=== PATIENT | female | born 1940 | race Caucasian/White ===

== ENCOUNTER 2016-11-17 09:58 | Inpatient (IN) ==
[2016-11-17 11:54] LABS: Basophils % 0.4 %; Eosinophils # 0.3 K/mcL (0.0-0.6); Eosinophils % 4.7 %; Hematocrit 35.9 % (35.3-44.9); Hemoglobin 11.5 g/dL (11.5-15.4); Immature Granulocytes % 0.3 % (0-4); Lymphocytes # 1.5 K/mcL (0.6-4.6); Lymphocytes % 22.3 %; Mean Corpuscular Hemoglobin 27.6 pg (28.0-33.3); Mean Corpuscular Volume 86.3 fL (83.0-100.0); Monocytes # 0.7 K/mcL (0.0-1.3); Monocytes % 9.6 %; Neutrophils # 4.2 K/mcL (1.6-8.9); Platelet Count 263 K/mcL (140-400); Red Blood Count 4.16 M/mcL (3.82-4.97); Red Cell Distribution Width 16.4 % (11.5-14.5); Segmented Neutrophils % 62.7 %
[2016-11-17 12:10] LABS: Albumin 3.9 g/dL (3.5-5.0); Albumin/Globulin Ratio 1.3 (1.1-2.2); Alkaline Phosphatase 106 Units/L (38-126); Aspartate Amino Transferase 13 Units/L (5-34); BUN/Creatinine Ratio 24 (6-26); Bilirubin,Total 0.7 mg/dL (0.2-1.2); Blood Urea Nitrogen 28 mg/dL (7-20); Calcium 9.6 mg/dL (8.6-10.8); Carbon Dioxide 27 mEq/L (19-29); Chloride 104 mEq/L (98-109); Globulin 2.9 g/dL (2.4-3.5); Glucose 109 mg/dL (70-99); Osmolality,Calculated 294 (280-300); Phosphorous 4.4 mg/dL (2.3-4.7); Potassium 4.9 mEq/L (3.5-4.5); Sodium 139 mEq/L (136-145); Total Protein 6.8 g/dL (6.0-8.3); eGFR For African Americans 55 (> 60); eGFR For Non-African Americans 46 (> 60)
[2016-11-17 12:11] LABS: Bilirubin,Urine Negative (Negative); Blood,Urine Negative (Negative); Clarity,Urine Clear (Clear); Color,Urine Yellow (Yellow); Glucose,Urine (UA) Normal (Normal); Ketones,Urine Negative (Negative); Leukocyte Esterase,Urine Moderate (Negative); Nitrite,Urine Negative (Negative); Protein,Urine Negative (Neg-Trace); Specific Gravity,Urine 1.009 (1.010-1.025); Urobilinogen,Urine Normal (Normal)
[2016-11-17 12:11] LABS: Alanine Aminotransferase < 6 Units/L (0-55)
[2016-11-17 12:13] LABS: Bacteria,Urine None Seen per hpf (None-Few); Hyaline Casts,Urine None Seen per lpf (None-Few); RBC,Urine 0-3 per hpf (0-3); Squamous Epithelial Cell,Urine Moderate per lpf (None-Few)
--- NOTE | 2016-11-17 12:18 | Emergency Department Note ---
START Narrative - START START: I examined this patient and my medical decision-making was reviewed with the SAMPLE STEAMER/PA/Advanced Practice Nurse/Resident Physician. I agree with the documented findings, disposition and treatment plan as described except to the extent set forth below. ED attending note: Patient seen with emergency medicine resident Dr Luong. We independently evaluated the patient. We independently had [id number] contact with the patient. Please see a copy of his note for details of the history and physical, evaluation, management and disposition of this emergency Department patient. Briefly: 76-year-old female presents with 2 chief complaints. Upon recurrent syncopal attacks with no aggravating or alleviating factors. Over the past month or so. No premonitory symptoms. No residual neurologic deficits. And generalized weakness over the past several weeks. Neurologic examination is nonfocal afebrile with stable vital signs. Patient had a workup in July at [facility] for generalized weakness which was negative. Patient is undergoing laboratory analysis with urinalysis here. Disposition pending although admission anticipated for recurrent unexplained acute syncopal attacks. Provided 40 minutes of critical care services for this patient.
--- NOTE | 2016-11-17 12:59 | Emergency Department Note ---
Disposition Clinical Impression: Generalized weakness, Hyperkalemia, Acute kidney injury Disposition: Admitted As Inpatient Condition: Fair General Adult HPI - General Chief complaint: ED Altered Mental Status Stated complaint: UTI Time Seen by Provider: 11/17/16 10:57 Source: family Limitations: altered mental status Nursing Notes Reviewed: Yes Vital Signs Reviewed: Yes - History of Present Illness HPI Narrative: Mrs. Hollingsworth, 76-year-old female, presents from home via POV with chief complaint of generalized weakness. Onset late April and has been acutely worse over the last 2-3 weeks. She notes she has had 2-3 episodes in that timeframe. Patient does have prodromal symptoms described as, "my stomach flipping." She is unsure if she has lost consciousness during these events; her states that she is still able to mumble incoherently during these events but the patient has poor recollection was recovered. When she does recover, she comes back to baseline with no apparent confusion. Patient was previously evaluated for the same complaint at [facility] and discharged with a diagnosis of dehydration and UTI. Patient's grandson at bedside who relays that his mother/patient's daughter witnessed one of these episodes and described the patient as pale with no palpable radial pulse. PMH: Parkinson's, recurrent UTI, hypertension. No hx arrhythmias, CAD, ACS, CVA. ROS: Denies fever, chills, nausea, vomiting, chest pains, palpitations, dyspnea, diaphoresis, abdominal pains, changes in bowel or bladder. Pain Scale: 0 - Related Data Home Medications Medication Instructions Recorded Confirmed Acetaminophen [Tylenol Arthritis] 650 mg PO Q8H PRN 11/17/16 11/17/16 Aspirin Enteric Coated [Aspirin EC] 81 mg PO DAILY 11/17/16 11/17/16 Atorvastatin [Lipitor] 40 mg PO HS 11/17/16 11/17/16 Carbidopa/Levodopa 25/100 [Sinemet 2 each PO TID 11/17/16 11/17/16 25/100] Carbidopa/Levodopa ER 50/200 1 each PO HS 11/17/16 11/17/16 [Sinemet ER 50-200 TAB] Celecoxib [Celebrex] 200 mg PO BID 11/17/16 11/17/16 Citalopram Hydrobromide 10 mg PO DAILY 11/17/16 11/17/16 [Citalopram HBr] Coenzyme [id number] E [Co 1 each PO DAILY 11/17/16 11/17/16 Q-10 with l-Carnitine Sftgl] Cranberry 400 mg PO DAILY 11/17/16 11/17/16 Ergocalciferol (VITAMIN D2) 50,000 unit PO CASEY 11/17/16 11/17/16 [Vitamin D2] Omeprazole [PriLOSEC] 20 mg PO DAILY 11/17/16 11/17/16 cephALEXin [Keflex] 500 mg PO DAILY 11/17/16 11/17/16 clonazePAM [Klonopin] 0.5 mg PO BID 11/17/16 11/17/16 Allergies Allergy/AdvReac Type Severity Reaction Status Date / Time diazepam [From Valium] AdvReac See Verified 11/17/16 16:55 Comments All systems ED: reviewed and negative except as stated. Past Medical History - Past Medical History Medical history: Reports: hyperlipidemia, other Psychiatric history: Reports: no psych history - Social History Smoking Status: Never smoker Smokeless Tobacco Status: No Alcohol use: Reports: none Drug use: Reports: none Physical Exam Vital signs reviewed. General: Patient is alert, oriented, and in no acute distress. HEENT: No facial asymmetry. Head is normocephalic and atraumatic. PERRLA, EOMI. Nasal turbinates moist and pink. Posterior pharynx without exudates or cobblestoning. Trachea midline, no palpable thyroid nodules, no thyromegaly. Cardiovascular: Heart regular rate and rhythm without clicks, rubs, gallops, or murmurs. No JVD. PMI nondisplaced. Trace pedal edema bilaterally. Respiratory: Symmetric chest rise with poor respiratory effort. Bilateral breath sounds are clear without wheezing, crackles, or rhonchi. Abdomen: Obese. Bowel sounds present normoactive x-4 quadrants. Abdomen is soft, nondistended, and nontender. No organomegaly noted. Musculoskeletal: Muscle strength 5/5 and symmetric bilaterally in upper and lower extremities. Neuro: Cranial nerves II through XII without deficit. Negative rapid alternating hands. No drift in upper or lower extremities. No aphasia or dysarthria. Sensation light touch intact. Psych: Patient's affect is appropriate for situation. - General Limitations: altered mental status General appearance: alert, in no apparent distress Course Course Narrative: Patient describes syncope with prodrome. Unlikely cardiac however will EKG, chest x-ray, troponin. No focal neurologic deficits; will not CT head at this time. Chest x-ray unremarkable. Troponin 0. Glucose 109. Electrolytes show hyperkalemia. UA suspicious for contamination; unlikely UTI. Discussed with the patient and family at bedside my concern for symptomatic hypotension as well as other potential cardiac etiology. They agreed to admission for continued evaluation. 13:45 Spoke with the admitting hospitalist, Dr. Rodrigez, who agrees to accept the patient. Vital Signs Temperature 97.4 F L 11/17/16 10:02 Pulse Rate 60 11/17/16 10:02 Respiratory Rate 16 11/17/16 10:02 Blood Pressure 126/72 11/17/16 10:02 O2 Sat by Pulse Oximetry 99 11/17/16 10:02 Temperature 98.2 F 11/17/16 21:13 Pulse Rate 72 11/17/16 21:13 Respiratory Rate 16 11/17/16 21:13 Blood Pressure 150/87 11/17/16 21:13 O2 Sat by Pulse Oximetry 95 11/17/16 21:13 Oxygen Delivery Oxygen Delivery Room Air Medical Decision Making - Lab Data Lab results reviewed: Yes I reviewed the patient's lab results. Result diagrams: 11/17/16 11:42 11/17/16 11:42 Lab Results 11/17/16 11/17/16 11/17/16 Range/Units 11:00 11:42 11:42 WBC 6.8 (4.3-11.1) K/mcL RBC 4.16 (3.82-4.97) M/mcL Hgb 11.5 (11.5-15.4) g/dL Hct 35.9 (35.3-44.9) % MCV 86.3 (83.0-100.0) fL MCH 27.6 L (28.0-33.3) pg MCHC 32.0 (31.6-35.5) g/dL RDW 16.4 H (11.5-14.5) % Plt Count 263 (140-400) K/mcL MPV 10.0 (9.4-12.4) fL Immature Gran % 0.3 (0-4) % Seg Neutrophils % 62.7 % Lymphocytes % 22.3 % Monocytes % 9.6 % Eosinophils % 4.7 % Basophils % 0.4 % Neutrophils # 4.2 (1.6-8.9) K/mcL Lymphocytes # 1.5 (0.6-4.6) K/mcL Monocytes # 0.7 (0.0-1.3) K/mcL Eosinophils # 0.3 (0.0-0.6) K/mcL Basophils # 0.0 (0.0-0.2) K/mcL Sodium 139 (136-145) mEq/L Potassium 4.9 H (3.5-4.5) mEq/L Chloride 104 (98-109) mEq/L Carbon Dioxide 27 (19-29) mEq/L BUN 28 H (7-20) mg/dL Creatinine 1.16 H (0.57-1.11) mg/dL Est GFR ( Amer) 55 L (> 60) Est GFR (Non-Af Amer) 46 L (> 60) BUN/Creatinine Ratio 24 (6-26) Glucose 109 H (70-99) mg/dL Calculated Osmolality 294 (280-300) Calcium 9.6 (8.6-10.8) mg/dL Phosphorus 4.4 (2.3-4.7) mg/dL Magnesium 2.0 (1.6-2.6) mg/dL Total Bilirubin 0.7 (0.2-1.2) mg/dL AST 13 (5-34) Units/L ALT < 6 (0-55) Units/L Alkaline Phosphatase 106 (38-126) Units/L Troponin I (0-0.03) ng/mL Serum Total Protein 6.8 (6.0-8.3) g/dL Albumin 3.9 (3.5-5.0) g/dL Globulin 2.9 (2.4-3.5) g/dL Albumin/Globulin Ratio 1.3 (1.1-2.2) Urine Color Yellow (Yellow) Urine Clarity Clear (Clear) Urine pH 6.0 (5.0-8.0) pH Units Ur Specific [place] 1.009 L (1.010-1.025) Urine Protein Negative (Neg-Trace) mg/dL Urine Glucose (UA) Normal (Normal) mg/dL Urine Ketones Negative (Negative) mg/dL Urine Blood Negative (Negative) Urine Nitrite Negative (Negative) Urine Bilirubin Negative (Negative) Urine Urobilinogen Normal (Normal) mg/dL Ur Leukocyte Esterase Moderate H (Negative) Urine Microscopic RBC 0-3 (0-3) per hpf Urine Microscopic WBC 5-15 H (0-3) per hpf Ur Squamous Epith Cells Moderate H (None-Few) per lpf Urine Bacteria None Seen (None-Few) per hpf Hyaline Casts None Seen (None-Few) per lpf Ur Culture Indicated? YES A (NO) 11/17/16 Range/Units 11:42 WBC (4.3-11.1) K/mcL RBC (3.82-4.97) M/mcL Hgb (11.5-15.4) g/dL Hct (35.3-44.9) % MCV (83.0-100.0) fL MCH (28.0-33.3) pg MCHC (31.6-35.5) g/dL RDW (11.5-14.5) % Plt Count (140-400) K/mcL MPV (9.4-12.4) fL Immature Gran % (0-4) % Seg Neutrophils % % Lymphocytes % % Monocytes % % Eosinophils % % Basophils % % Neutrophils # (1.6-8.9) K/mcL Lymphocytes # (0.6-4.6) K/mcL Monocytes # (0.0-1.3) K/mcL Eosinophils # (0.0-0.6) K/mcL Basophils # (0.0-0.2) K/mcL Sodium (136-145) mEq/L Potassium (3.5-4.5) mEq/L Chloride (98-109) mEq/L Carbon Dioxide (19-29) mEq/L BUN (7-20) mg/dL Creatinine (0.57-1.11) mg/dL Est GFR ( Amer) (> 60) Est GFR (Non-Af Amer) (> 60) BUN/Creatinine Ratio (6-26) Glucose (70-99) mg/dL Calculated Osmolality (280-300) Calcium (8.6-10.8) mg/dL Phosphorus (2.3-4.7) mg/dL Magnesium (1.6-2.6) mg/dL Total Bilirubin (0.2-1.2) mg/dL AST (5-34) Units/L ALT (0-55) Units/L Alkaline Phosphatase (38-126) Units/L Troponin I 0.00 (0-0.03) ng/mL Serum Total Protein (6.0-8.3) g/dL Albumin (3.5-5.0) g/dL Globulin (2.4-3.5) g/dL Albumin/Globulin Ratio (1.1-2.2) Urine Color (Yellow) Urine Clarity (Clear) Urine pH (5.0-8.0) pH Units Ur Specific [place] (1.010-1.025) Urine Protein (Neg-Trace) mg/dL Urine Glucose (UA) (Normal) mg/dL Urine Ketones (Negative) mg/dL Urine Blood (Negative) Urine Nitrite (Negative) Urine Bilirubin (Negative) Urine Urobilinogen (Normal) mg/dL Ur Leukocyte Esterase (Negative) Urine Microscopic RBC (0-3) per hpf Urine Microscopic WBC (0-3) per hpf Ur Squamous Epith Cells (None-Few) per lpf Urine Bacteria (None-Few) per hpf Hyaline Casts (None-Few) per lpf Ur Culture Indicated? (NO) - Radiology Data Radiology results reviewed: Yes I reviewed the patient's radiology results. Chest X-Ray 11/17/16 11:23 IMPRESSION: 1. No active pulmonary disease. D/ / Jono Triana MD / Jono Triana MD Interpreting Provider: Jono Triana MD - EKG Data EKG #1 EKG attestation: Yes I reviewed and interpreted this EKG. EKG results narrative: EKG dated 2016 at 11:56 interpreted as sinus bradycardia with first -degree AV block. Rate of 59. [place] 236. QRS 89, QT/QTC 422/20. Left axis. Nonspecific ST-T changes. Compared to previous dated 04/22/2016 showing no acute ischemic changes in comparison.
[2016-11-17] MEDS ORDERED: Naloxone 0.4 MG/ML INJ IVP PRN (14:54)
--- NOTE | 2016-11-17 15:11 | Internal Med History&Physical ---
Date of Encounter: 11/17/16 Time of Encounter: 15:01 Assessment and Plan (1) Syncope Current visit: Yes Status: Acute Increasing frequency of syncopal episodes over the last several months. Patient experiences a brief prodrome of nausea and blurry vision and then loses consciousness. Occurs with position changes most often, but has also occurred while sitting. May be vaso-vagal vs. arrhythmia vs. orthostatic hypotension. EKG showed sinus bradycardia with 1st degree block, HR 59. Troponin negative at 0.00. continuous mica washer gluer echocardiogram orthostatic vital signs. Consider stress test depending on results of echo and discussion with patient and family. Qualifiers: Syncope type: unspecified Qualified Code(s): R55 - Syncope and collapse (2) Parkinsons Current visit: Yes Status: Acute Patient with Parkinsons diagnosed greater than 10 years ago. No recent changes to her medication regimen. Continue home dose of Sinemet. (3) Dehydration Current visit: Yes Status: Acute BUN elevated at 28, creatinine elevated at 1.16. Hydrate with 0.9NS at 80mL/hr and encourage PO intake. Recheck chemistry in the morning. (4) Acute kidney injury Current visit: Yes Status: Acute Likely secondary to dehydration with poor oral intake. UA not definitive for infection, culture sent. Hydrate with 0.9NS and recheck chemistry in the morning. (5) DVT prophylaxis Current visit: Yes Status: Acute anti-embolic stockings Lovenox 40mg SQ daily Internal Medicine - H&P: HPI Chief complaint: syncope Admitted From: Emergency Dept Plans for Post Hospital Care: Home History of present illness: Ms. Hollingsworth is a 76 year old female with hyperlipidemia, sleep apnea, parkinsons disease, who presented to the ED with complaints of increasing episodes of syncope. Patient's and grandson are at the bedside and state patient has had generalized weakness for the last 6 months. She has had episodes of fainting for the last several months, which have increased in frequency over the last 2-3 weeks. The episodes seem to occur usually after getting up from the toilet or getting up from the bed, however they have also occurred while she is sitting with no change position. These episodes used to occur approximately once a week and then increase to a couple times a week and now been occurring a couple times a day. Patient reports that she feels her stomach. Prior to the episodes and she has light sensitivity and blurry vision prior to the episodes as well. She also reports decreased appetite, nausea, constipation. She denies chest pain, palpitations, shortness of breath, headache. Evaluation in the emergency department included an EKG which showed sinus bradycardia with first-degree AV block rate 59, no acute ischemic changes. Test x-ray showed no active pulmonary disease. Troponin was negative at 0.00. White blood cell count was normal at 6.8. She appeared mildly dehydrated with BUN of 28 and creatinine of 1.16. On exam, patient alert and oriented, in no acute distress heart had regular rhythm lungs are clear bilaterally to auscultation, cranial nerves intact, no pronator drift. Past Med Surg Social Fam HX - Past Medical History Medical history: GERD, hyperlipidemia, other (Parkinsons) Psychiatric history: no psych history - Past Surgical History Surgical History: knee replacement - Social History Smoking Status: Never smoker Smokeless Tobacco Status: No Alcohol use: none Drug use: none - Family History Father Living Status: Cause of : ID Hx Family Cardiac Disorders: Yes Mother Living Status: Cause of : CVA Internal Medicine - H&P: Meds Acetaminophen [Tylenol Arthritis] 650 mg PO Q8H PRN 11/17/16 [History] Aspirin Enteric Coated [Aspirin EC] 81 mg PO DAILY 11/17/16 [History] Atorvastatin [Lipitor] 40 mg PO HS 11/17/16 [History] Carbidopa/Levodopa 25/100 [Sinemet 25/100] 2 each PO TID 11/17/16 [History] Carbidopa/Levodopa ER 50/200 [Sinemet ER 50-200 TAB] 1 each PO HS 11/17/16 [ History] Celecoxib [Celebrex] 200 mg PO BID 11/17/16 [History] Citalopram Hydrobromide [Citalopram HBr] 10 mg PO DAILY 11/17/16 [History] Coenzyme [id number] E [Co Q-10 with l-Carnitine Sftgl] 1 each PO DAILY 11/17/16 [History] Cranberry 400 mg PO DAILY 11/17/16 [History] Ergocalciferol (VITAMIN D2) [Vitamin D2] 50,000 unit PO CASEY 11/17/16 [History] Omeprazole [PriLOSEC] 20 mg PO DAILY 11/17/16 [History] cephALEXin [Keflex] 500 mg PO DAILY 11/17/16 [History] clonazePAM [Klonopin] 0.5 mg PO BID 11/17/16 [History] Allergies diazepam [From Valium] Adverse Reaction (Verified 11/17/16 16:55) See Comments All Systems PM: A 10-system review of systems was performed and is negative for pertinent findings except as documented above in the HPI. - Constitutional Constitutional: weakness, no chills, no fever(s), no night sweats - EENT Eyes: blurry vision, no change in vision, no discharge, no pain, no photophobia Ears: no ear discharge, no ear pain, no tinnitus Nose, mouth and throat: no dysphagia, no nasal discharge, no neck pain, no sore throat - Cardiovascular Cardiovascular ROS IM: lightheadedness, syncope, no chest pain, no diaphoresis, no dyspnea, no palpitations - Respiratory Respiratory: no cough, no dyspnea, no wheezing, no excessive phlegm production - Gastrointestinal Gastrointestinal: no abdominal pain, no diarrhea, no hematemesis, no hematochezia, no melena, no nausea, no vomiting - Genitourinary Genitourinary: no change in urinary stream, no dysuria, no flank pain, no hematuria - Musculoskeletal Musculoskeletal ROS IM: muscle weakness (generalized), no numbness, no tingling - Integumentary Integumentary IM: no rash, no unusual bruising - Neurological Neurological ROS: abnormal gait (shuffling), weakness (generalized), no confusion, no convulsions, no focal weakness, no numbness, no tingling, no tremor(s) - Hematologic/Lymphatic Hematologic/Lymphatic: no easy bruising - Constitutional Vitals: Temp Pulse Resp BP Pulse Ox 97.4 F L 60 16 126/72 99 11/17/16 10:02 11/17/16 10:02 11/17/16 10:02 11/17/16 10:02 11/17/16 10:02 General appearance: Present: A&O X 3, pleasant, no acute distress - Head Head exam: Present: atraumatic, normocephalic - Eye Eye exam: Present: PERRL, conjuntiva pink, sclera anicteric Pupils: Present: PERRL - Neck Neck exam general surgery: Present: supple, trachea midline. Absent: lymphadenopathy - Respiratory Respiratory exam: Present: CTAB. Absent: accessory muscle use, rales, rhonchi, wheezes - Cardiovascular Cardiovascular exam: Present: RRR, +S1, +S2. Absent: diastolic murmur, gallop, rubs, systolic murmur - GI/Abdominal GI/Abdominal exam: Present: normal bowel sounds, soft, no peritoneal signs. Absent: distended, tenderness - Extremities Exam Extremities exam: Present: warm, radial pulses palpable and symetrical. Absent : calf tenderness, cyanotic, pedal edema - Neurological Exam Neurological exam: Present: CN II-XII intact, oriented X3, no focal deficits. Absent: pronater drift, facial droop, speech deficit - Skin Skin exam: Present: dry, intact Internal Med - H&P Results - Labs CBC & Chem 7: 11/17/16 11:42 11/17/16 11:42 Labs: All Lab Results (24 Hours) 11/17/16 11/17/16 11/17/16 Range/Units 11:00 11:42 11:42 WBC 6.8 (4.3-11.1) K/mcL RBC 4.16 (3.82-4.97) M/mcL Hgb 11.5 (11.5-15.4) g/dL Hct 35.9 (35.3-44.9) % MCV 86.3 (83.0-100.0) fL MCH 27.6 L (28.0-33.3) pg MCHC 32.0 (31.6-35.5) g/dL RDW 16.4 H (11.5-14.5) % Plt Count 263 (140-400) K/mcL MPV 10.0 (9.4-12.4) fL Immature Gran % 0.3 (0-4) % Seg Neutrophils % 62.7 % Lymphocytes % 22.3 % Monocytes % 9.6 % Eosinophils % 4.7 % Basophils % 0.4 % Neutrophils # 4.2 (1.6-8.9) K/mcL Lymphocytes # 1.5 (0.6-4.6) K/mcL Monocytes # 0.7 (0.0-1.3) K/mcL Eosinophils # 0.3 (0.0-0.6) K/mcL Basophils # 0.0 (0.0-0.2) K/mcL Sodium 139 (136-145) mEq/L Potassium 4.9 H (3.5-4.5) mEq/L Chloride 104 (98-109) mEq/L Carbon Dioxide 27 (19-29) mEq/L BUN 28 H (7-20) mg/dL Creatinine 1.16 H (0.57-1.11) mg/dL Est GFR ( Amer) 55 L (> 60) Est GFR (Non-Af Amer) 46 L (> 60) BUN/Creatinine Ratio 24 (6-26) Glucose 109 H (70-99) mg/dL Calculated Osmolality 294 (280-300) Calcium 9.6 (8.6-10.8) mg/dL Phosphorus 4.4 (2.3-4.7) mg/dL Magnesium 2.0 (1.6-2.6) mg/dL Total Bilirubin 0.7 (0.2-1.2) mg/dL AST 13 (5-34) Units/L ALT < 6 (0-55) Units/L Alkaline Phosphatase 106 (38-126) Units/L Troponin I (0-0.03) ng/mL Serum Total Protein 6.8 (6.0-8.3) g/dL Albumin 3.9 (3.5-5.0) g/dL Globulin 2.9 (2.4-3.5) g/dL Albumin/Globulin Ratio 1.3 (1.1-2.2) Urine Color Yellow (Yellow) Urine Clarity Clear (Clear) Urine pH 6.0 (5.0-8.0) pH Units Ur Specific [place] 1.009 L (1.010-1.025) Urine Protein Negative (Neg-Trace) mg/dL Urine Glucose (UA) Normal (Normal) mg/dL Urine Ketones Negative (Negative) mg/dL Urine Blood Negative (Negative) Urine Nitrite Negative (Negative) Urine Bilirubin Negative (Negative) Urine Urobilinogen Normal (Normal) mg/dL Ur Leukocyte Esterase Moderate H (Negative) Urine Microscopic RBC 0-3 (0-3) per hpf Urine Microscopic WBC 5-15 H (0-3) per hpf Ur Squamous Epith Cells Moderate H (None-Few) per lpf Urine Bacteria None Seen (None-Few) per hpf Hyaline Casts None Seen (None-Few) per lpf Ur Culture Indicated? YES A (NO) 11/17/16 Range/Units 11:42 WBC (4.3-11.1) K/mcL RBC (3.82-4.97) M/mcL Hgb (11.5-15.4) g/dL Hct (35.3-44.9) % MCV (83.0-100.0) fL MCH (28.0-33.3) pg MCHC (31.6-35.5) g/dL RDW (11.5-14.5) % Plt Count (140-400) K/mcL MPV (9.4-12.4) fL Immature Gran % (0-4) % Seg Neutrophils % % Lymphocytes % % Monocytes % % Eosinophils % % Basophils % % Neutrophils # (1.6-8.9) K/mcL Lymphocytes # (0.6-4.6) K/mcL Monocytes # (0.0-1.3) K/mcL Eosinophils # (0.0-0.6) K/mcL Basophils # (0.0-0.2) K/mcL Sodium (136-145) mEq/L Potassium (3.5-4.5) mEq/L Chloride (98-109) mEq/L Carbon Dioxide (19-29) mEq/L BUN (7-20) mg/dL Creatinine (0.57-1.11) mg/dL Est GFR ( Amer) (> 60) Est GFR (Non-Af Amer) (> 60) BUN/Creatinine Ratio (6-26) Glucose (70-99) mg/dL Calculated Osmolality (280-300) Calcium (8.6-10.8) mg/dL Phosphorus (2.3-4.7) mg/dL Magnesium (1.6-2.6) mg/dL Total Bilirubin (0.2-1.2) mg/dL AST (5-34) Units/L ALT (0-55) Units/L Alkaline Phosphatase (38-126) Units/L Troponin I 0.00 (0-0.03) ng/mL Serum Total Protein (6.0-8.3) g/dL Albumin (3.5-5.0) g/dL Globulin (2.4-3.5) g/dL Albumin/Globulin Ratio (1.1-2.2) Urine Color (Yellow) Urine Clarity (Clear) Urine pH (5.0-8.0) pH Units Ur Specific [place] (1.010-1.025) Urine Protein (Neg-Trace) mg/dL Urine Glucose (UA) (Normal) mg/dL Urine Ketones (Negative) mg/dL Urine Blood (Negative) Urine Nitrite (Negative) Urine Bilirubin (Negative) Urine Urobilinogen (Normal) mg/dL Ur Leukocyte Esterase (Negative) Urine Microscopic RBC (0-3) per hpf Urine Microscopic WBC (0-3) per hpf Ur Squamous Epith Cells (None-Few) per lpf Urine Bacteria (None-Few) per hpf Hyaline Casts (None-Few) per lpf Ur Culture Indicated? (NO) - Diagnostic Studies Chest x-ray Additional comments: Chest X-Ray 11/17/16 11:23 IMPRESSION: 1. No active pulmonary disease. D/ / Jono Triana MD / Jono Triana MD Interpreting Provider: Jono Triana MD
[2016-11-17] MEDS: 0.9 % Sodium Chloride 1,000 ML IVC SCH (17:30)
[2016-11-17] MEDS: Carbidopa/Levodopa 25/100 TABLET PO SCH (17:30)
--- NOTE | 2016-11-17 18:01 | Event Note ---
Date of Encounter: 11/17/16 Time of Encounter: 17:00 I examined this patient and my medical decision-making was reviewed with Ms. Varela. I agree with the documented findings, disposition and treatment plan as described except to the extent set forth below. 76 yo CF presented after a syncopal episode. She has Parkinson's. She continues to report lightheadedness on sitting and standing up. Exam is bening with CTAB and regular heart sounds. Labs and EKG personally reviewed. Place under observation. ECHO. Orthostatic vital check. IV fluids. Consider stress test. Resume Parkinson's meds. RADHA Wiley
--- NOTE | 2016-11-17 19:02 | Electrocardiograph Report ---
[address] [address] Test Date: 2016-11-17 Pat Name: Madonna Hollingsworth Department: 105 Room: 3B24 Gender: F Salt Maker: : 1940 Requested By: Kameron Luong Order Number: [id number] Reading MD: Zaid Florez MD Measurements Intervals [place] Rate: 59 P: 43 MA: 236 QRS: -26 QRSD: 89 T: 59 QT: 422 QTc: 420 Interpretive Statements SINUS BRADYCARDIA WITH FIRST DEGREE AV BLOCK MINIMAL VOLTAGE CRITERIA FOR LVH Poor R wave progression Electronically Signed On 11-17-2016 19:00:58 EDT by Zaid Florez MD
[2016-11-17] MEDS: clonazePAM 0.5 MG TABLET PO SCH (21:32)
[2016-11-17] MEDS: Carbidopa/Levodopa ER 50/200 TABLET PO SCH (23:10)
[2016-11-18 05:23] LABS: Basophils # 0.1 K/mcL (0.0-0.2); Basophils % 0.5 %; Eosinophils # 0.4 K/mcL (0.0-0.6); Eosinophils % 4.2 %; Hematocrit 34.4 % (35.3-44.9); Hemoglobin 11.1 g/dL (11.5-15.4); Immature Granulocytes % 0.3 % (0-4); Lymphocytes # 1.7 K/mcL (0.6-4.6); Lymphocytes % 18.8 %; Mean Corpuscular HGB Conc 32.3 g/dL (31.6-35.5); Mean Corpuscular Hemoglobin 27.6 pg (28.0-33.3); Mean Corpuscular Volume 85.6 fL (83.0-100.0); Mean Platelet Volume 10.6 fL (9.4-12.4); Monocytes % 10.5 %; Platelet Count 282 K/mcL (140-400); Red Blood Count 4.02 M/mcL (3.82-4.97); Red Cell Distribution Width 16.6 % (11.5-14.5); Segmented Neutrophils % 65.7 %
[2016-11-18 05:42] LABS: BUN/Creatinine Ratio 28 (6-26); Blood Urea Nitrogen 22 mg/dL (7-20); Calcium 9.2 mg/dL (8.6-10.8); Carbon Dioxide 25 mEq/L (19-29); Chloride 106 mEq/L (98-109); Glucose 93 mg/dL (70-99); Osmolality,Calculated 293 (280-300); Potassium 4.1 mEq/L (3.5-4.5); Sodium 140 mEq/L (136-145); eGFR For African Americans > 60 (> 60); eGFR For Non-African Americans > 60 (> 60)
[2016-11-18] MEDS: *HR* Enoxaparin 40 MG/0.4 ML SYRINGE SQ SCH (06:38)
[2016-11-18] MEDS: Carbidopa/Levodopa 25/100 TABLET PO SCH ×3 (06:38→18:02)
[2016-11-18] MEDS: cephALEXin 500 MG CAPSULE PO SCH (08:58)
[2016-11-18] MEDS: clonazePAM 0.5 MG TABLET PO SCH ×2 (08:58→21:31)
[2016-11-18] MEDS: Aspirin Enteric Coated 81 MG Tablet PO SCH (08:58)
[2016-11-18] MEDS: 0.9 % Sodium Chloride 1,000 ML IVC SCH ×2 (09:47→21:32)
--- NOTE | 2016-11-18 10:10 | ECHO - Doppler Report ---
Echocardiogram Name: Madonna Hollingsworth Date of Study: 11/17/2016 Date: 1940 Ht: 60.0 in Medical Record#: [id number] Age: 76 Wt: 195.0 lb Gender: Female BSA: 1.85 Order #: [id number] Location: [facility] Room #: 3B24 Reading Physician: Rhiannon Hilario DO Showroom Sales Assistant: Leia Montalvo Ordering Physician: Suzanna Varela CNP Primary Physician: Karen Reyes CNP Indications: Syncope Impressions: LVEF 60%. Normal left ventricular size and systolic function. There is evidence of mild diastolic dysfunction of the left ventricle. Normal right ventricular size and function. Mild mitral regurgitation. No pulmonary hypertension. Findings: Study Quality * Technically adequate exam. ECG Findings * Normal sinus rhythm. Left Ventricle * LVEF 60%. * Normal LV chamber size, wall thickness and function. * Mild left ventricular diastolic dysfunction. Aorta * Normally sized aortic root. Left Atrium * Mildly dilated left atrium. Mitral Valve * Normal mitral valve structure. * No mitral stenosis. * Mild mitral regurgitation. Aortic Valve * No aortic regurgitation. * Trileaflet aortic valve. * No aortic stenosis. Tricuspid Valve * Tricuspid valve not well visualized. * No tricuspid regurgitation. * Estimated RA pressure is 3 mmHg. * Estimated RVSP is 17 mmHg. * No pulmonary hypertension. Pulmonic Valve * Pulmonic valve is not well visualized. * No pulmonic stenosis. * No pulmonic regurgitation. Pulmonary Artery * Pulmonary artery not well visualized. Right Ventricle * Normal right ventricular structure and function. Right Atrium * Normal right atrial size. Interatrial Septum * No evidence of PFO by color Doppler. Pericardium * There is no pericardial effusion present. IVC * Normal IVC dimensions and inspiratory collapse. History Hypercholesteremia Family History of CAD Measurements: BP: 126/ 72 2D Normal Values RVIDd: 3.40 cm <2.7 cm IVSd: 1.60 cm 0.6 - 1.0 cm LVIDd: 3.00 cm 3.7 - 5.6 cm LVPWd: 1.40 cm 0.6 - 1.1 cm LVIDs: 2.20 cm 1.5 - 3.6 cm AO: 2.40 cm < 4.0 cm LA: 5.10 cm 2.0 - 4.0cm %FS: 26.70 cm >25 % LA volume: 65 Mitral Valve Peak E:.72 m/sec Peak A:1.18 m/sec E/A Ratio:0.6 Peak E' Lat Rick:6.04 cm/s Peak E' Med Rick:5.46 cm/s E/E' Lat Ratio:11.9 E/E' Med Ratio:13.2 Tricuspid Valve TV Regurg Peak Grad: 14.00mmHg TV Regurg Peak Rick: 1.89m/sec Updated by Rhiannon Hilario on 11/18/2016 10:01:52 AM electronically signed on 11/18/2016 10:03:54 AM with status of Final Wall Motion Greco: 1=Normal, 2=Hypokinesis, 3=Akinesis, 4=Dyskinesis, 5=Aneurysmal, 6=Hyperkinetic, X=Not Visualized (Blank)=Missing
--- NOTE | 2016-11-18 14:32 | Internal Med Progress Note ---
Date of Encounter: 11/18/16 Time of Encounter: 09:25 - Assessment and plan (1) Syncope Current Visit: Yes Status: Acute Assessment and plan: Patient reports that she has been having syncopal episodes 2-3 times a week since or . She says she feels a "flip", and she becomes dizzy and knows that she must sit down. She denies shortness of breath, chest pain, nausea or vomiting, and diaphoresis. She says that she has been seen by Dr. Schrader and has been told that there is nothing that can be done. She has never been seen by ENT. Febrile episodes normally happen when there is abrupt position change, but she also states that this happened while she is sitting with no movement. Etiology is uncertain, could be vasovagal or cardiac in nature. Patient was also dehydrated on arrival, if this is a chronic state could be orthostatic hypotension. EKG showed sinus bradycardia first-degree block. Troponins are negative. Echocardiogram shows LVEF is 60% normal systolic function, mild diastolic dysfunction, mild mitral regurgitation and no pulmonary hypertension. Patient states that she does feel some better but says that she became weak and had difficulty walking to the bathroom this morning and required 3 people to get her back to bed. She does have home health, she lives at home with her . Continue cut to length operator Discussed stress test with patient and , they are agreeable to stress in the morning. Neurology consult has been made Qualifiers: Syncope type: unspecified Qualified Code(s): R55 - Syncope and collapse (2) Dizziness Current Visit: Yes Status: Acute Assessment and plan: Plan as above. (3) UTI (urinary tract infection) Current Visit: Yes Status: Acute Assessment and plan: Urine positive for gram-negative rods. Patient is being treated with cephalexin 500 mg by mouth. Sensitivity pending. Qualifiers: Urinary tract infection type: acute cystitis Hematuria presence: with hematuria Qualified Code(s): N30.01 - Acute cystitis with hematuria (4) Parkinsons Current Visit: Yes Status: Chronic Assessment and plan: Patient is receiving PT at home for her Parkinson's. Continue home dose of Sinemet. Patient and both would like to continue PT at home and not go to a nursing facility. Ambulate only with assistance Fall precautions (5) Dehydration Current Visit: Yes Status: Acute Assessment and plan: If patient is chronically dehydrated, this could be a cause of her syncopal episodes. Labs have returned to normal limits. Continue to monitor. IV fluids 0.9 normal saline at 80 ML's per hour. (6) DVT prophylaxis Current Visit: Yes Status: Acute Assessment and plan: Lovenox. VASU oneal. (7) Acute kidney injury Current Visit: Yes Status: Resolved Assessment and plan: Most likely due to poor by mouth intake. GFR is greater than 60, BUN 22, creatinine 0.79. Urine positive for gram-negative rods. - Time Spent With Patient less than 15 minutes - Subjective Interval history: Patient was seen and assessed this morning at about 9:25 AM. She was sitting up in bed, was conversive and alert. She answered questions appropriately. She reports that since or she has been having dizziness and syncopal episodes, she states that she has no recollection of them. She says they do not happen every day, but happened 2-3 times a week. She says when this happens her low abdomen "flips", she becomes dizzy. She denies any shortness of breath, nausea or vomiting, and no diaphoresis. She is not been seen by ENT, however she was seen by neurology and was told there was nothing that could be done. She is currently getting PT at home for her Parkinson's and she has [facility]. She did tell me that she has been not getting PT due to her dizziness and that she has not had it for several months. She also told me that she lives at home with her mother and takes care of her parents at home. Family member arrives and states that this is not true. After patient is redirected she says that she does live at home with her . Her arrives he states that she is indeed getting physical therapy at home for the last 2 weeks. Urine culture returned gram-negative rods today. Patient is being treated with Keflex 500 mg and will continue until sensitivity returns. Physical therapy [place] [facility] before returning home. We will attempt placement if patient and agree. - Constitutional Vitals: Temp Pulse Resp BP Pulse Ox 98.2 F 72 16 113/77 98 11/18/16 11:59 11/18/16 11:59 11/18/16 11:59 11/18/16 11:59 05/23/17 11:59 General appearance: Present: cooperative, A&O X 3, pleasant, no acute distress. Absent: answers questions appropriately - Head Head exam: Present: normal inspection - Eye Eye exam: Present: normal appearance, conjuntiva pink - ENT ENT exam: Present: mucous membranes moist, normal exam - Neck Neck exam general surgery: Present: normal inspection. Absent: lymphadenopathy , tenderness - Respiratory Respiratory exam: Absent: rales, rhonchi, stridor, wheezes - Cardiovascular Cardiovascular exam: Present: RRR, +S1, +S2. Absent: diastolic murmur, systolic murmur - Extremities Exam Extremities exam: Present: normal capillary refill, warm. Absent: pedal edema, tenderness - Neurological Exam Neurological exam: Present: alert, oriented X3, no focal deficits, strengths equal and symetr throughout. Absent: facial droop, speech deficit Internal Medicine: Result - Labs CBC & Chem 7: 11/18/16 04:03 11/18/16 04:03 Labs: Short CBC 11/18/16 Range/Units 04:03 WBC 9.2 (4.3-11.1) K/mcL Hgb 11.1 L (11.5-15.4) g/dL Hct 34.4 L (35.3-44.9) % Plt Count 282 (140-400) K/mcL Neutrophils # 6.0 (1.6-8.9) K/mcL BMP 11/18/16 04:03 Sodium 140 Potassium 4.1 Chloride 106 Carbon Dioxide 25 BUN 22 H Creatinine 0.79 Glucose 93 Calcium 9.2 - VTE Documentation of Mechanical Device: Graduated compression elastic hosiery Consult Discharge Plan - Plan Referrals: Karen Reyes CNP [Primary Care Provider] -
[2016-11-18] MEDS: Carbidopa/Levodopa ER 50/200 TABLET PO SCH (23:09)
[2016-11-19 05:08] LABS: Basophils # 0.1 K/mcL (0.0-0.2); Basophils % 0.9 %; Eosinophils # 0.4 K/mcL (0.0-0.6); Eosinophils % 6.1 %; Hematocrit 31.9 % (35.3-44.9); Immature Granulocytes % 0.3 % (0-4); Lymphocytes # 2.1 K/mcL (0.6-4.6); Lymphocytes % 30.8 %; Mean Corpuscular HGB Conc 31.3 g/dL (31.6-35.5); Mean Corpuscular Hemoglobin 27.3 pg (28.0-33.3); Mean Corpuscular Volume 87.2 fL (83.0-100.0); Mean Platelet Volume 10.4 fL (9.4-12.4); Monocytes # 0.8 K/mcL (0.0-1.3); Monocytes % 11.6 %; Neutrophils # 3.5 K/mcL (1.6-8.9); Platelet Count 250 K/mcL (140-400); Red Blood Count 3.66 M/mcL (3.82-4.97); Red Cell Distribution Width 16.6 % (11.5-14.5); Segmented Neutrophils % 50.3 %
[2016-11-19 05:24] LABS: BUN/Creatinine Ratio 22 (6-26); Blood Urea Nitrogen 17 mg/dL (7-20); Calcium 8.9 mg/dL (8.6-10.8); Carbon Dioxide 24 mEq/L (19-29); Chloride 109 mEq/L (98-109); Glucose 94 mg/dL (70-99); Osmolality,Calculated 293 (280-300); Potassium 4.1 mEq/L (3.5-4.5); Sodium 141 mEq/L (136-145); eGFR For African Americans > 60 (> 60); eGFR For Non-African Americans > 60 (> 60)
[2016-11-19] MEDS: Carbidopa/Levodopa 25/100 TABLET PO SCH ×3 (05:58→18:37)
[2016-11-19] MEDS: *HR* Enoxaparin 40 MG/0.4 ML SYRINGE SQ SCH (06:00)
[2016-11-19] MEDS: Regadenoson 0.4 MG/5 ML SYRINGE IVP ONE ×3 (06:27→11:42)
[2016-11-19] MEDS: cephALEXin 500 MG CAPSULE PO SCH (11:23)
[2016-11-19] MEDS: clonazePAM 0.5 MG TABLET PO SCH (11:23)
[2016-11-19] MEDS: Aspirin Enteric Coated 81 MG Tablet PO SCH (11:23)
[2016-11-19] MEDS: 0.9 % Sodium Chloride 1,000 ML IVC SCH ×2 (11:42→18:37)
--- NOTE | 2016-11-19 12:52 | Nuclear Medicine Stress Report ---
Regadenoson Nuclear Stress Name: Madonna Hollingsworth Date of Study: 11/19/2016 Date: 1940 Ht: 60.0 in Medical Record#: [id number] Age: 76 Wt: 195.0 lb Gender: Female Order #: [id number] Location: [facility] Room: [facility] Supervising Provider: Guera Cantu CNP Reading Physician: Rhiannon Hilario DO Ordering Physician: Nicolette Jauregui CNP Primary Care Physician: Karen Reyes CNP Stress Technologist: Anish Dillon CRT Biscuit Maker: Jean Contreras Indications: dizziness Impression: Perfusion imaging was negative for ischemia or infarct. No appreciable change in pharmacologic stress ECG from baseline. Gated EF = >70%. History: Hypertension Hypercholesteremia Stress Test Summary: Stress Test Type: Pharmacologic Regadenoson 0.4mg/5ml given IV Baseline Information: Initial Heart Rate: 62 Blood Pressure: 138/82 Stress Information: Stress Time: 4 min 00 sec Test Terminated Due to (primary): As per protocol Maximum Blood Pressure: 120/78 Maximum Heart Rate: 91 Percent Maximum Heart Rate Achieved: 62 Double Product: 98662 METS Reached: 1 Symptoms: No chest symptoms Nuclear Summary: SPECT myocardial perfusion imaging using Tc99m Sestamibi given intravenously was performed at rest and following cardiac stress testing. The resting images were obtained following initial dose of 11.0 mCi. Following stress an additional dose of 33.3 mCi was given at peak exercise or 30 seconds post regadenoson infusion. Medication Given: Time Medication Dose Units Route Findings: Stress Note * Resting ECG demonstrated normal sinus rhythm with RSR' in V1, flattened diffuse ST segments. * No appreciable change in pharmacologic stress ECG from baseline. * No arrhythmias were noted during stress. * Patient had no chest pain during stress. Hemodynamic responses * Normal hemodynamic responses to pharmacologic stress. Study Quality * Study quality is good. Gated EF > 70% * Gated EF > 70%. Left Ventricle * The left ventricle is not dilated. NORMALS * Normal wall motion. * Normal segmental perfusion in stress. * Normal Segmental Perfusion in rest. TID * No evidence of transient ischemic dilatation. Lung Uptake * There is no evidence of increase lung uptake. Updated by Rhiannon Hilario on 11/19/2016 12:47:38 PM electronically signed on 11/19/2016 12:48:09 PM with status of Final
--- NOTE | 2016-11-19 13:54 | Internal Med Progress Note ---
Date of Encounter: 11/19/16 Time of Encounter: 10:50 - Assessment and plan (1) Syncope Current Visit: Yes Status: Acute Assessment and plan: Patient has had 2 episodes of orthostatic hypotension since she has been here, most recently today after she came back from her stress test. Systolic blood pressure dropped to 100 from 122 after going from lying to sitting. She was then hypotensive with a systolic of 92 with standing. Echocardiogram shows LVEF 60%, normal systolic function, mild diastolic dysfunction. Normal RV size and function, mild MR and no pulmonary hypertension. Patient had stress test today that was negative for ischemia or infarct, her gated EF is greater than 70%. Due to these findings and patient's overall weakness, I will keep patient overnight again and give IV hydration. Patient also has urinary tract infection and is being treated with IV antibiotics. Patient had a head CT and August, was negative for any acute infarct. Will repeat Gentle IV hydration Continue IV Cipro PT/OT Telemetry Fall precautions Qualifiers: Syncope type: unspecified Qualified Code(s): R55 - Syncope and collapse (2) Dizziness Current Visit: Yes Status: Acute Assessment and plan: Plan as above. (3) UTI (urinary tract infection) Current Visit: Yes Status: Acute Assessment and plan: Urine culture and sensitivity returned today. Urine is positive for Citrobacter freundii. Patient is being treated with IV Cipro 400 mg IV twice a day. She will be sent home on the same. Rocephin has been stopped. Continue IV antibiotics Continue gentle hydration Qualifiers: Urinary tract infection type: acute cystitis Hematuria presence: with hematuria Qualified Code(s): N30.01 - Acute cystitis with hematuria (4) Parkinsons Current Visit: Yes Status: Chronic Assessment and plan: Continue home medication (5) Dehydration Current Visit: Yes Status: Acute Assessment and plan: Renal function remained stable. We will continue gentle IV hydration. Patient is tolerating by mouth intake as well. (6) DVT prophylaxis Current Visit: Yes Status: Acute Assessment and plan: Lovenox. VASU oneal. (7) Acute kidney injury Current Visit: Yes Status: Resolved - Time Spent With Patient less than 15 minutes - Subjective Interval history: Patient was seen and assessed this morning at about 10:50 AM. I did stop by and see patient's several times and addressed his concerns. He was concerned about payment to a assisted and 's condition. Her hemoglobin has dropped from 11.5-10.0. Patient is getting IV fluids and there is no reported carmella hematuria hematochezia or dark tarry stools. We will continue to monitor this. Patient had 2 positive sets of orthostatic vital signs. Due to her history of syncope and these findings, patient will stay overnight for continued monitoring. Stress test and echocardiogram were both negative. Patient had a CT head in August that showed no acute problem. We will repeat this in the morning. Patient is being treated for Citrobacter in her urine with IV Cipro. She will be sent home with by mouth Cipro. We will continue IV hydration and monitoring the patient. - Constitutional Vitals: Temp Pulse Resp BP Pulse Ox 97.3 F L 72 16 122/75 99 11/19/16 11:01 11/19/16 12:27 11/19/16 11:01 11/19/16 12:27 11/19/16 11:01 General appearance: Present: cooperative, A&O X 3, pleasant, no acute distress, answers questions appropriately - Head Head exam: Present: normal inspection - Eye Eye exam: Present: normal appearance, conjuntiva pink - ENT ENT exam: Present: mucous membranes moist, normal exam, normal external ear exam - Neck Neck exam general surgery: Present: normal inspection. Absent: lymphadenopathy , tenderness - Respiratory Respiratory exam: Present: decreased breath sounds, CTAB. Absent: respiratory distress - Cardiovascular Cardiovascular exam: Present: RRR, +S1, +S2. Absent: diastolic murmur, systolic murmur - Extremities Exam Extremities exam: Present: normal capillary refill, normal inspection, warm, radial pulses palpable and symetrical. Absent: pedal edema, tenderness - Neurological Exam Neurological exam: Present: alert, oriented X3, no focal deficits, strengths equal and symetr throughout. Absent: facial droop, speech deficit Internal Medicine: Result - Labs CBC & Chem 7: 11/19/16 04:09 11/19/16 04:09 - VTE Documentation of Mechanical Device: Graduated compression elastic hosiery Consult Discharge Plan - Plan Referrals: Karen Reyes CNP [Primary Care Provider] - Mari Zuleta CNP [Advanced Practice Nurse] - 11/26/16 1:00 pm
--- NOTE | 2016-11-19 13:54 | Carotid Imaging Report ---
Carotid Duplex Patient Name:Madonna Hollingsworth Order Number:[id number] Procedure Date:11/18/2016 Date:1940ge:76 yrs Gender:Female Lt BP:149 / 80 mmHg Rt.BP:155 / 76 mmHgHeart Rate: Location:[facility] Room #: 24 Microwave Radio Technician:Nina Morley Referring MD:Nelia Zimmerman CNP car record clerk:Karen Reyes CNP Reading MD:Eliseo Bee MD Primary Indications:dizziness, syncope Risk Factors Yes/No Hypercholesterolemia Yes Impressions: Findings: Bilateral carotid system is essentially normal. Recommendations: After imaging the patient returned to their room. Findings Carotid Duplex: Right: The right proximal common carotid artery has a PSV of 42 cm/s and a EDV of 8 cm/s. The right mid common carotid artery has a PSV of 45 cm/s and a EDV of 10 cm/s. The right distal common carotid artery has a PSV of 46 cm/s and a EDV of 10 cm/s. The right bifurcation has a PSV of 36 cm/s and a EDV of 9 cm/s. The right proximal internal carotid artery has a PSV of 42 cm/s and a EDV of 10 cm/s. The right mid internal carotid artery has a PSV of 40 cm/s and a EDV of 13 cm/s. The right distal internal carotid artery has a PSV of 58 cm/s and a EDV of 12 cm/s. The right eca has a PSV of 74 cm/s and a EDV of 12 cm/s. The right vertebral artery has a PSV of 32 cm/s and a EDV of 8 cm/s. Left: The left proximal common carotid artery has a PSV of 61 cm/s and a EDV of 15 cm/s. The left mid common carotid artery has a PSV of 63 cm/s and a EDV of 17 cm/s. The left distal common carotid artery has a PSV of 60 cm/s and a EDV of 16 cm/s. There is nonstenotic plaque in the left bifurcation with a PSV of 52 cm/s and a EDV of 12 cm/s. The left proximal internal carotid artery has a PSV of 60 cm/s and a EDV of 16 cm/s. The left mid internal carotid artery has a PSV of 101 cm/s and a EDV of 28 cm/s. The left distal internal carotid artery has a PSV of 104 cm/s and a EDV of 24 cm/s. The left eca has a PSV of 57 cm/s and a EDV of 11 cm/s. The left vertebral artery has a PSV of 43 cm/s and a EDV of 10 cm/s. Prior Study: No prior study available for comparison. Carotid Results Right PSV EDV Assessment Proximal CCA 42 8 Normal Mid CCA 45 10 Normal Distal CCA 46 10 Normal Bifurcation 36 9 Normal Proximal ICA 42 10 Normal Mid ICA 40 13 Normal Distal ICA 58 12 Normal ECA 74 12 Normal Vertebral Artery 32 8 Normal Left PSV EDV Assessment Proximal CCA 61 15 Normal Mid CCA 63 17 Normal Distal CCA 60 16 Normal Bifurcation 52 12 Non Stenotic Plaque Proximal ICA 60 16 Normal Mid ICA 101 28 Normal Distal ICA 104 24 Normal ECA 57 11 Normal Vertebral Artery 43 10 Normal Ratio's Right ICA/CCA Ratio: 1.29 ICA/CCA Values: 58/45 Left ICA/CCA Ratio: 1.65 ICA/CCA Values: 104/63 Updated by Eliseo Bee MD on 11/19/2016 1:47:58 PM electronically signed on 11/19/2016 1:48:10 PM with status of Final
--- NOTE | 2016-11-19 16:33 | Neurology - Consult Note ---
Date of Encounter: 11/19/16 Time of Encounter: 16:30 Assessment and Plan (1) Parkinsons Current Visit: Yes Status: Chronic This patient is indeed very parkinsonian. 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 Unfortunately however she seems to be approaching end stages. It is likely that the dopamine her brain gets exposed to his that which is provided through her medication therapy. She has profound orthostasis. And she is also developing significant cognitive impairment. With regard to the orthostasis I might suggest mineralocorticoids such as Florinef. Otherwise regarding the Parkinson's disease is unfortunately not much else to offer. I did not think that she would be a good candidate for physical therapy. Maintain her Parkinson's medications as they are, currently. History of Present Illness HPI: Ms. Hollingsworth is a 76 year old female who is being seen for neurologic consultation secondary to dizzy spells and difficulty with balance. She is a known diagnosis of Parkinson's disease and has been under the care of Dr. Chao for about 10 years or so. Apparently the dizzy spells have been escalating over the last several weeks to the point where she was having falls and near syncopal episodes daily. She has actually been found to have orthostasis. When she stands she has significant drops in her blood pressure. She is now essentially unable to walk due to this. She is awake and alert, however she admits that her memory is failing as well. CT scan of the head was completed today which was unrevealing. Past Med Surg Social Fam HX - Past Medical History Medical history: hyperlipidemia, other Psychiatric history: no psych history - Past Surgical History Surgical History: knee replacement - Social History Smoking Status: Never smoker Smokeless Tobacco Status: No Alcohol use: none Drug use: none - Family History Father Living Status: Cause of : [place] Hx Family Cardiac Disorders: Yes Mother Living Status: Cause of : CVA Medications and Allergies Acetaminophen [Tylenol Arthritis] 650 mg PO Q8H PRN 11/17/16 [History] Aspirin Enteric Coated [Aspirin EC] 81 mg PO DAILY 11/17/16 [History] Atorvastatin [Lipitor] 40 mg PO HS 11/17/16 [History] Carbidopa/Levodopa 25/100 [Sinemet 25/100] 2 each PO TID 11/17/16 [History] Carbidopa/Levodopa ER 50/200 [Sinemet ER 50-200 TAB] 1 each PO HS 11/17/16 [ History] Celecoxib [Celebrex] 200 mg PO BID 11/17/16 [History] Citalopram Hydrobromide [Citalopram HBr] 10 mg PO DAILY 11/17/16 [History] Coenzyme [id number]-Retncplez-Ddh E [Co Q-10 with l-Carnitine Sftgl] 1 each PO DAILY 11/17/16 [History] Cranberry 400 mg PO DAILY 11/17/16 [History] Ergocalciferol (VITAMIN D2) [Vitamin D2] 50,000 unit PO CASEY 11/17/16 [History] Omeprazole [PriLOSEC] 20 mg PO DAILY 11/17/16 [History] cephALEXin [Keflex] 500 mg PO DAILY 11/17/16 [History] clonazePAM [Klonopin] 0.5 mg PO BID 11/17/16 [History] Allergies diazepam [From Valium] Adverse Reaction (Verified 11/17/16 16:55) See Comments All Systems: A 10-system review of systems was performed and is negative for pertinent findings except as documented above in the HPI. Review of Systems: Temporal review of systems is consistent with a history of present illness. Otherwise negative. Physical Examination - Vital Signs Vital Signs: Initial Vital Signs Temp Pulse Resp BP Pulse Ox 97.4 F L 60 16 126/72 99 11/17/16 10:02 11/17/16 10:02 11/17/16 10:02 11/17/16 10:02 11/17/16 10:02 - Exam Exam: Neurologic examination is performed and finds the following. For cerebral functions-she is awake however somewhat somnolent. She follows some simple commands but gets confused with others. She could not tell me which hospital she was in and thought she was in [place]. Able to talk however. She does have some apraxia. She is not encephalopathic however. Cranial nerves-pupils are equal and reactive to light and accommodation, extraocular motility is intact, sensory to face intact, mastication is intact. There is no facial asymmetry is identified. Hearing is intact symmetrically. Soft palate elevates bilaterally upon phonation. Tongue protrudes midline. Motor exam finds that she is bradykinetic. She does have masked facies. I do not identify a resting tremor, however she does have cogwheel rigidity. She has normal strength of both upper and lower extremities. There is no atrophy identified. Sensory exam finds light touch and deep touch are globally intact. Deep tendon reflexes are diminished throughout. No long tract signs are present. Results - Laboratory Findings CBC and BMP: 11/19/16 04:09 11/19/16 04:09 Abnormal lab findings: Abnormal lab results RBC 3.66 M/mcL (3.82-4.97) L 11/19/16 04:09 Hgb 10.0 g/dL (11.5-15.4) L 11/19/16 04:09 Hct 31.9 % (35.3-44.9) L 11/19/16 04:09 MCH 27.3 pg (28.0-33.3) L 11/19/16 04:09 MCHC 31.3 g/dL (31.6-35.5) L 11/19/16 04:09 RDW 16.6 % (11.5-14.5) H 11/19/16 04:09 Ur Specific [place] 1.009 (1.010-1.025) L 11/17/16 11:00 Ur Leukocyte Esterase Moderate (Negative) H 11/17/16 11:00 Urine Microscopic WBC 5-15 per hpf (0-3) H 11/17/16 11:00 Ur Squamous Epith Cells Moderate per lpf (None-Few) H 11/17/16 11:00 Ur Culture Indicated? YES (NO) A 11/17/16 11:00 Consult Discharge Plan - Plan Referrals: Karen Reyes CNP [Primary Care Provider] - Mari Zuleta CNP [Advanced Practice Nurse] - 11/26/16 1:00 pm
[2016-11-20] MEDS: Carbidopa/Levodopa ER 50/200 TABLET PO SCH ×2 (00:02→22:39)
[2016-11-20] MEDS: clonazePAM 0.5 MG TABLET PO SCH ×3 (00:02→20:33)
[2016-11-20 04:08] LABS: Basophils % 0.5 %; Eosinophils # 0.4 K/mcL (0.0-0.6); Hematocrit 33.2 % (35.3-44.9); Hemoglobin 10.7 g/dL (11.5-15.4); Immature Granulocytes % 0.2 % (0-4); Lymphocytes # 2.1 K/mcL (0.6-4.6); Lymphocytes % 25.6 %; Mean Corpuscular HGB Conc 32.2 g/dL (31.6-35.5); Mean Corpuscular Hemoglobin 27.9 pg (28.0-33.3); Mean Corpuscular Volume 86.5 fL (83.0-100.0); Mean Platelet Volume 10.7 fL (9.4-12.4); Monocytes # 0.8 K/mcL (0.0-1.3); Monocytes % 9.5 %; Neutrophils # 4.7 K/mcL (1.6-8.9); Platelet Count 276 K/mcL (140-400); Red Blood Count 3.84 M/mcL (3.82-4.97); Red Cell Distribution Width 16.6 % (11.5-14.5); Segmented Neutrophils % 59.2 %
[2016-11-20 04:13] LABS: BUN/Creatinine Ratio 20 (6-26); Blood Urea Nitrogen 16 mg/dL (7-20); Calcium 9.3 mg/dL (8.6-10.8); Carbon Dioxide 21 mEq/L (19-29); Chloride 110 mEq/L (98-109); Glucose 108 mg/dL (70-99); Osmolality,Calculated 296 (280-300); Potassium 4.1 mEq/L (3.5-4.5); Sodium 142 mEq/L (136-145); eGFR For African Americans > 60 (> 60); eGFR For Non-African Americans > 60 (> 60)
[2016-11-20] MEDS: Carbidopa/Levodopa 25/100 TABLET PO SCH ×3 (06:41→17:01)
[2016-11-20] MEDS: *HR* Enoxaparin 40 MG/0.4 ML SYRINGE SQ SCH (06:41)
[2016-11-20] MEDS: Aspirin Enteric Coated 81 MG Tablet PO SCH (07:58)
[2016-11-20] MEDS: cephALEXin 500 MG CAPSULE PO SCH (07:59)
[2016-11-20] MEDS: 0.9 % Sodium Chloride 1,000 ML IVC SCH (11:14)
--- NOTE | 2016-11-20 19:07 | Internal Med Progress Note ---
Date of Encounter: 11/20/16 Time of Encounter: 15:00 - Assessment and plan (1) Syncope Current Visit: Yes Status: Acute Assessment and plan: 11/20/2016: Syncope secondary to dehydration and profound orthostasis secondary to advanced Parkinson's disease. I appreciate neurology recommendations. I will recheck orthostatic vital signs and decide based upon that whether she would benefit from starting Florinef. In the interim I will continue with PT OT. Close monitoring for possible fall. She is at high risk for fall and injury. I have discussed discharge planning with the patient's . He is concerned that if she is being discharged home she is at high risk for fall and injury. PT OT recommended subacute rehabilitation. I will refer to administrator social welfare for placement. 11/19/2016: Patient has had 2 episodes of orthostatic hypotension since she has been here, most recently today after she came back from her stress test. Systolic blood pressure dropped to 100 from 122 after going from lying to sitting. She was then hypotensive with a systolic of 92 with standing. Echocardiogram shows LVEF 60%, normal systolic function, mild diastolic dysfunction. Normal RV size and function, mild MR and no pulmonary hypertension. Patient had stress test today that was negative for ischemia or infarct, her gated EF is greater than 70%. Due to these findings and patient's overall weakness, I will keep patient overnight again and give IV hydration. Patient also has urinary tract infection and is being treated with IV antibiotics. Patient had a head CT and August, was negative for any acute infarct. Will repeat Gentle IV hydration Continue IV Cipro PT/OT Telemetry Fall precautions Qualifiers: Syncope type: unspecified Qualified Code(s): R55 - Syncope and collapse (2) Parkinsons Current Visit: Yes Status: Chronic Assessment and plan: Continue home medication (3) Dehydration Current Visit: Yes Status: Acute Assessment and plan: Renal function remained stable. We will continue gentle IV hydration. Patient is tolerating by mouth intake as well. (4) DVT prophylaxis Current Visit: Yes Status: Acute Assessment and plan: Lovenox. VASU hose. (5) Acute kidney injury Current Visit: Yes Status: Resolved Assessment and plan: Most likely due to poor by mouth intake. GFR is greater than 60, BUN 22, creatinine 0.79. Urine positive for gram-negative rods. (6) Generalized weakness Current Visit: Yes Status: Acute (7) UTI (urinary tract infection) Current Visit: Yes Status: Acute Assessment and plan: 11/20/2016: Urine culture grew Citrobacter sensitive to fluoroquinolones. I will continue him with Cipro. Stop Keflex. 11/19/2016: Urine culture and sensitivity returned today. Urine is positive for Citrobacter freundii. Patient is being treated with IV Cipro 400 mg IV twice a day. She will be sent home on the same. Rocephin has been stopped. Continue IV antibiotics Continue gentle hydration Qualifiers: Urinary tract infection type: acute cystitis Hematuria presence: with hematuria Qualified Code(s): N30.01 - Acute cystitis with hematuria - Subjective Interval history: Patient presented with multiple recurrent falls and syncopal episodes secondary to orthostatic hypotension. Over the last 24 hours she reports some improvement in her balance and she has not had any more syncopal or presyncopal episode. She was able to work with physical therapy. She had received continued treatment with IV fluids. She denies chest pain fever dysuria and hematuria. - Constitutional Vitals: Temp Pulse Resp BP Pulse Ox 97.7 F 65 15 177/95 97 11/20/16 15:14 11/20/16 16:44 11/20/16 15:14 11/20/16 16:44 11/20/16 15:14 General appearance: Present: cooperative, A&O X 3, pleasant, no acute distress, answers questions appropriately - Respiratory Respiratory exam: Present: CTAB. Absent: accessory muscle use, rales, rhonchi, wheezes - Cardiovascular Cardiovascular exam: Present: RRR, +S1, +S2. Absent: diastolic murmur, gallop, rubs, systolic murmur - GI/Abdominal GI/Abdominal exam: Present: normal bowel sounds, soft, no peritoneal signs. Absent: distended, tenderness - Extremities Exam Extremities exam: Present: warm, radial pulses palpable and symetrical. Absent : calf tenderness, cyanotic, pedal edema Internal Medicine: Result - Labs CBC & Chem 7: 11/20/16 03:07 11/20/16 03:07 Labs: Short CBC 11/20/16 Range/Units 03:07 WBC 8.0 (4.3-11.1) K/mcL Hgb 10.7 L (11.5-15.4) g/dL Hct 33.2 L (35.3-44.9) % Plt Count 276 (140-400) K/mcL Neutrophils # 4.7 (1.6-8.9) K/mcL BMP 11/20/16 03:07 Sodium 142 Potassium 4.1 Chloride 110 H Carbon Dioxide 21 BUN 16 Creatinine 0.79 Glucose 108 H Calcium 9.3 - VTE Documentation of Mechanical Device: Graduated compression elastic hosiery Consult Discharge Plan - Plan Referrals: Karen Reyes CNP [Primary Care Provider] - Mari Zuleta CNP [Advanced Practice Nurse] - 11/26/16 1:00 pm
[2016-11-21 05:53] LABS: Basophils % 0.5 %; Eosinophils # 0.5 K/mcL (0.0-0.6); Eosinophils % 6.4 %; Hematocrit 31.2 % (35.3-44.9); Hemoglobin 9.9 g/dL (11.5-15.4); Immature Granulocytes % 0.3 % (0-4); Lymphocytes # 2.2 K/mcL (0.6-4.6); Lymphocytes % 28.8 %; Mean Corpuscular HGB Conc 31.7 g/dL (31.6-35.5); Mean Corpuscular Hemoglobin 27.6 pg (28.0-33.3); Mean Corpuscular Volume 86.9 fL (83.0-100.0); Mean Platelet Volume 10.8 fL (9.4-12.4); Monocytes # 0.9 K/mcL (0.0-1.3); Monocytes % 11.5 %; Platelet Count 247 K/mcL (140-400); Red Blood Count 3.59 M/mcL (3.82-4.97); Red Cell Distribution Width 16.6 % (11.5-14.5); Segmented Neutrophils % 52.5 %
[2016-11-21] MEDS: *HR* Enoxaparin 40 MG/0.4 ML SYRINGE SQ SCH (05:57)
[2016-11-21 06:07] LABS: BUN/Creatinine Ratio 19 (6-26); Blood Urea Nitrogen 15 mg/dL (7-20); Calcium 9.1 mg/dL (8.6-10.8); Carbon Dioxide 22 mEq/L (19-29); Chloride 109 mEq/L (98-109); Glucose 96 mg/dL (70-99); Osmolality,Calculated 293 (280-300); Potassium 3.7 mEq/L (3.5-4.5); Sodium 141 mEq/L (136-145); eGFR For African Americans > 60 (> 60); eGFR For Non-African Americans > 60 (> 60)
[2016-11-21] MEDS: Carbidopa/Levodopa 25/100 TABLET PO SCH ×3 (06:48→17:41)
[2016-11-21] MEDS: clonazePAM 0.5 MG TABLET PO SCH ×2 (10:12→20:48)
[2016-11-21] MEDS: Aspirin Enteric Coated 81 MG Tablet PO SCH (10:12)
[2016-11-21] MEDS: cephALEXin 500 MG CAPSULE PO SCH (10:12)
--- NOTE | 2016-11-21 11:02 | Internal Med Progress Note ---
Date of Encounter: 11/21/16 Time of Encounter: 10:00 - Assessment and plan (1) Syncope Current Visit: Yes Status: Acute Assessment and plan: 11/15/1616: Syncope secondary to profound orthostasis and dehydration. The dehydration part has been resolved and the patient is less symptomatic however I am concerned that she will always be orthostatic due to her advanced Parkinson 's disease. I am hesitant to start her on Florinef since she is already hypertensive and this could make her more hypertensive and could potentially cause a stroke. At this point we will monitor closely. We will continue with physical therapy and occupational therapy and instructed her of ways to monitor and adjust for symptoms of orthostatic hypotension. She remains very high risk for falls and injury and would benefit from subacute rehabilitation for PT and OT. 11/20/2016: Syncope secondary to dehydration and profound orthostasis secondary to advanced Parkinson's disease. I appreciate neurology recommendations. I will recheck orthostatic vital signs and decide based upon that whether she would benefit from starting Florinef. In the interim I will continue with PT OT. Close monitoring for possible fall. She is at high risk for fall and injury. I have discussed discharge planning with the patient's . He is concerned that if she is being discharged home she is at high risk for fall and injury. PT OT recommended subacute rehabilitation. I will refer to social services manager for placement. 11/19/2016: Patient has had 2 episodes of orthostatic hypotension since she has been here, most recently today after she came back from her stress test. Systolic blood pressure dropped to 100 from 122 after going from lying to sitting. She was then hypotensive with a systolic of 92 with standing. Echocardiogram shows LVEF 60%, normal systolic function, mild diastolic dysfunction. Normal RV size and function, mild MR and no pulmonary hypertension. Patient had stress test today that was negative for ischemia or infarct, her gated EF is greater than 70%. Due to these findings and patient's overall weakness, I will keep patient overnight again and give IV hydration. Patient also has urinary tract infection and is being treated with IV antibiotics. Patient had a head CT and August, was negative for any acute infarct. Will repeat Gentle IV hydration Continue IV Cipro PT/OT Telemetry Fall precautions Qualifiers: Syncope type: unspecified Qualified Code(s): R55 - Syncope and collapse (2) Parkinsons Current Visit: Yes Status: Chronic Assessment and plan: 11/21/2016: Continue with Sinemet (3) Dehydration Current Visit: Yes Status: Acute Assessment and plan: Renal function remained stable. We will stop IV fluids. Encourage oral hydration. (4) DVT prophylaxis Current Visit: Yes Status: Acute Assessment and plan: Lovenox. VASU oneal. (5) Acute kidney injury Current Visit: Yes Status: Resolved Assessment and plan: Most likely due to poor by mouth intake. GFR is greater than 60, BUN 22, creatinine 0.79. Urine positive for gram-negative rods. (6) Generalized weakness Current Visit: Yes Status: Acute (7) UTI (urinary tract infection) Current Visit: Yes Status: Acute Assessment and plan: 11/21/2016: Switch to oral Cipro. 11/20/2016: Urine culture grew Citrobacter sensitive to fluoroquinolones. I will continue him with Cipro. Stop Keflex. 11/19/2016: Urine culture and sensitivity returned today. Urine is positive for Citrobacter freundii. Patient is being treated with IV Cipro 400 mg IV twice a day. She will be sent home on the same. Rocephin has been stopped. Continue IV antibiotics Continue gentle hydration Qualifiers: Urinary tract infection type: acute cystitis Hematuria presence: with hematuria Qualified Code(s): N30.01 - Acute cystitis with hematuria - Subjective Interval history: 11/21/2016: Patient reports ambulating with a walker yesterday, her dizziness upon standing has resolved however she really remained profoundly orthostatic yesterday by a blood pressure check. She denies syncope chest pain nausea vomiting. She denies dysuria and hematuria. 11/20/2016: Patient presented with multiple recurrent falls and syncopal episodes secondary to orthostatic hypotension. Over the last 24 hours she reports some improvement in her balance and she has not had any more syncopal or presyncopal episode. She was able to work with physical therapy. She had received continued treatment with IV fluids. She denies chest pain fever dysuria and hematuria. - Constitutional Vitals: Temp Pulse Resp BP Pulse Ox 97.7 F 71 14 160/79 94 11/21/16 07:01 11/21/16 07:01 11/21/16 07:01 11/21/16 07:01 11/21/16 07:01 General appearance: Present: cooperative, A&O X 3, pleasant, no acute distress, answers questions appropriately - Eye Eye exam: Present: PERRL, conjuntiva pink, sclera anicteric Pupils: Present: PERRL - Respiratory Respiratory exam: Present: CTAB. Absent: accessory muscle use, rales, rhonchi, wheezes - Cardiovascular Cardiovascular exam: Present: RRR, +S1, +S2. Absent: diastolic murmur, gallop, rubs, systolic murmur - GI/Abdominal GI/Abdominal exam: Present: normal bowel sounds, soft, no peritoneal signs. Absent: distended, tenderness - Skin Skin exam: Present: dry, intact Internal Medicine: Result - Labs CBC & Chem 7: 11/21/16 04:55 11/21/16 04:55 Labs: Short CBC 11/21/16 Range/Units 04:55 WBC 7.6 (4.3-11.1) K/mcL Hgb 9.9 L (11.5-15.4) g/dL Hct 31.2 L (35.3-44.9) % Plt Count 247 (140-400) K/mcL Neutrophils # 4.0 (1.6-8.9) K/mcL BMP 11/21/16 04:55 Sodium 141 Potassium 3.7 Chloride 109 Carbon Dioxide 22 BUN 15 Creatinine 0.77 Glucose 96 Calcium 9.1 - VTE Documentation of Mechanical Device: Graduated compression elastic hosiery Consult Discharge Plan - Plan Referrals: Karen Reyes CNP [Primary Care Provider] - Mari Zuleta CNP [Advanced Practice Nurse] - 11/26/16 1:00 pm
[2016-11-21] MEDS: Acetaminophen 325 MG TABLET PO PRN (14:33)
[2016-11-21] MEDS: Carbidopa/Levodopa ER 50/200 TABLET PO SCH (22:37)
[2016-11-22 04:03] LABS: Basophils # 0.1 K/mcL (0.0-0.2); Basophils % 0.7 %; Eosinophils # 0.5 K/mcL (0.0-0.6); Eosinophils % 6.2 %; Hematocrit 31.6 % (35.3-44.9); Hemoglobin 10.1 g/dL (11.5-15.4); Immature Granulocytes % 0.3 % (0-4); Lymphocytes # 2.1 K/mcL (0.6-4.6); Lymphocytes % 27.9 %; Mean Corpuscular Hemoglobin 27.7 pg (28.0-33.3); Mean Corpuscular Volume 86.6 fL (83.0-100.0); Mean Platelet Volume 10.8 fL (9.4-12.4); Monocytes # 0.8 K/mcL (0.0-1.3); Neutrophils # 4.1 K/mcL (1.6-8.9); Platelet Count 261 K/mcL (140-400); Red Blood Count 3.65 M/mcL (3.82-4.97); Red Cell Distribution Width 16.4 % (11.5-14.5); Segmented Neutrophils % 53.9 %
[2016-11-22 04:24] LABS: BUN/Creatinine Ratio 16 (6-26); Blood Urea Nitrogen 13 mg/dL (7-20); Calcium 9.4 mg/dL (8.6-10.8); Carbon Dioxide 27 mEq/L (19-29); Chloride 109 mEq/L (98-109); Glucose 96 mg/dL (70-99); Osmolality,Calculated 294 (280-300); Potassium 3.5 mEq/L (3.5-4.5); Sodium 142 mEq/L (136-145); eGFR For African Americans > 60 (> 60); eGFR For Non-African Americans > 60 (> 60)
[2016-11-22] MEDS: *HR* Enoxaparin 40 MG/0.4 ML SYRINGE SQ SCH (05:33)
[2016-11-22] MEDS: Carbidopa/Levodopa 25/100 TABLET PO SCH ×2 (05:33→12:08)
[2016-11-22 07:49] VITALS: BP 130/80
[2016-11-22] MEDS: clonazePAM 0.5 MG TABLET PO SCH (09:17)
[2016-11-22] MEDS: cephALEXin 500 MG CAPSULE PO SCH (09:17)
[2016-11-22] MEDS: Aspirin Enteric Coated 81 MG Tablet PO SCH (09:18)
--- NOTE | 2016-11-22 11:26 | Discharge Summary ---
Date of Encounter: 11/22/16 Time of Encounter: 10:00 - Discharge Diagnosis (1) Syncope Priority: Primary Status: Acute Comments: Syncope secondary to dehydration and profound orthostasis, secondary to advanced Parkinson's disease. Patient will most likely always be orthostatic due to advanced Parkinson's. Patient has been seen by physical therapy and occupational therapy and they have instructed her on ways to monitor and adjust for symptoms to avoid falls and injury. She remains very high risk for falls, therefore she is going to subacute rehabilitation for PT and OT. Echocardiogram shows LVEF 60%, normal systolic function, mild diastolic dysfunction. There is normal RV size and function, mild MR and no pulmonary hypertension. Patient had stress test done during admission that was negative for ischemia or infarct. Gated EF is greater than 70%. Head CT done on November 19 was negative for any acute infarct. Carotids were also completed, bilateral carotid system was essentially normal. Patient is being discharged to [facility] for physical therapy and occupational therapy. Qualifiers: Syncope type: unspecified Qualified Code(s): R55 - Syncope and collapse (2) Dizziness Priority: Secondary Status: Acute Comments: Plan as above (3) UTI (urinary tract infection) Priority: Secondary Status: Acute Comments: UTI. Citrobacter. patient is being treated with Cipro by mouth. Will be discharged with same. Qualifiers: Urinary tract infection type: acute cystitis Hematuria presence: with hematuria Qualified Code(s): N30.01 - Acute cystitis with hematuria (4) Parkinsons Priority: Secondary Status: Chronic Comments: Continue Sinemet (5) Dehydration Priority: Secondary Status: Resolved Comments: Renal function has remained stable throughout visit. Patient is tolerating by mouth fluids well. (6) DVT prophylaxis Priority: Secondary Status: Acute Comments: Lovenox. VASU oneal. (7) Acute kidney injury Priority: Secondary Status: Resolved Comments: Patient is being treated for urinary tract infection. Renal function labs have been within normal limits. - Discharge Medications Prescriptions: Ciprofloxacin [Cipro] 500 mg PO BID #8 tablet clonazePAM [Klonopin] 0.5 mg PO BID #4 tablet Home Medications: Acetaminophen [Tylenol Arthritis] 650 mg PO Q8H PRN 11/17/16 [History] Aspirin Enteric Coated [Aspirin EC] 81 mg PO DAILY 11/17/16 [History] Atorvastatin [Lipitor] 40 mg PO HS 11/17/16 [History] Carbidopa/Levodopa 25/100 [Sinemet 25/100] 2 each PO TID 11/17/16 [History] Carbidopa/Levodopa ER 50/200 [Sinemet ER 50-200 Tab] 1 each PO HS 11/17/16 [ History] Celecoxib [Celebrex] 200 mg PO BID 11/17/16 [History] Citalopram Hydrobromide [Citalopram HBr] 10 mg PO DAILY 11/17/16 [History] Coenzyme O50-e-[id number]-Cit E [Co Q-10 with l-Carnitine Sftgl] 1 each PO DAILY 11/17/16 [History] Cranberry 400 mg PO DAILY 11/17/16 [History] Ergocalciferol (VITAMIN D2) [Vitamin D2] 50,000 unit PO CASEY 11/17/16 [History] Omeprazole [PriLOSEC] 20 mg PO DAILY 11/17/16 [History] Ciprofloxacin [Cipro] 500 mg PO BID #8 tablet 11/22/16 [Rx] clonazePAM [Klonopin] 0.5 mg PO BID #4 tablet 11/22/16 [Rx] Allergies/Adverse Reactions: Allergies diazepam [From Valium] Adverse Reaction (Verified 11/17/16 16:55) See Comments Procedures/tests Complete & Pending: Procedures Performed prior 72 hours Category Date Time Status CT head/brain wo con [CT] Routine Cat Scan 11/19/16 15:00 Completed Date of admission: 11/19/16 12:00 Primary care physician: Karen Reyes CNP Discharging clinician: Nelia Zimmerman Anticipated date of discharge: 11/22/16 - Patient Status Disposition: Home, Self-Care Condition: Good Functional capacity at discharge: uses cane/walker Overall status at discharge: patient is progressing back to baseline - Discharge Instructions Follow Up With: Karen Reyes CNP [Primary Care Provider] - Mari Zuleta CNP [Advanced Practice Nurse] - 11/26/16 1:00 pm - Diet and Activity Activity: as per physical therapy Diet: diabetic diet, low fat, low cholesterol, low salt diet Hospital course: Ms. Hollingsworth is a 76 year old female who is admitted to the emergency department on November 17 with complaint of increasing frequency of syncopal episodes over the last few months. She says she experiences nausea and some blurry vision and then loses consciousness. It occurs primarily with position changes, but it also occurred while she was just sitting. Initial EKG showed sinus bradycardia first-degree block, rate 59. Her troponins were negative. Patient has a history of Parkinson's and will continue her Sinemet. Most likely he is due to chronic Parkinson's hypotension syncope. During visit patient had a head CT that was negative for acute infarct. Carotid Dopplers were essentially normal. Echocardiogram showed LVEF of 60%, normal systolic function and mild diastolic dysfunction. Patient also had a stress test during this admission was negative for ischemia or infarct and gated EF was 70%, Patient was dehydrated on admission BUN was elevated at 28. Creatinine was 1.16 she received IV fluids and labs have returned to within normal limits, acute kidney injury resolved. On November 19, patient was found to have a urinary tract infection. Urine was found to have Citrobacter sensitive fluoroquinolones. She has been on Keflex at home and that was stopped. We will continue Cipro by mouth twice a day at the [facility]. Patient's physical exam was benign and negative for any acute findings. Her labs have remained within normal limits and her vital signs have been stable. Patient is accepted to [facility] and will be discharged there for rehabilitation, physical therapy and occupational therapy. - Time Spent with Patient Total time spent providing and/or coordinating discharge services: - Constitutional Vitals: Temp Pulse Resp BP Pulse Ox 98.0 F 66 16 130/80 96 11/22/16 07:48 11/22/16 07:48 11/22/16 07:48 11/22/16 07:48 11/22/16 07:48 General appearance: Present: cooperative, A&O X 3, pleasant, no acute distress, answers questions appropriately - Head Head exam: Present: normal inspection - Eye Eye exam: Present: EOMI, normal appearance, conjuntiva pink. Absent: nystagmus - ENT ENT exam: Present: mucous membranes moist, normal exam, normal external ear exam - Neck Neck exam general surgery: Present: normal inspection. Absent: lymphadenopathy , tenderness - Respiratory Respiratory exam: Present: CTAB. Absent: rales, respiratory distress, rhonchi, stridor, wheezes - Cardiovascular Cardiovascular exam: Present: RRR, +S1, +S2, +S3. Absent: clicks, diastolic murmur, distant heart sounds, systolic murmur - GI/Abdominal GI/Abdominal exam: Present: normal bowel sounds, tenderness. Absent: distended , hepatomegaly - Neurological Exam Neurological exam: Present: alert, oriented X3, no focal deficits, strengths equal and symetr throughout. Absent: facial droop, speech deficit - VTE Documentation of Mechanical Device: Graduated compression elastic hosiery
--- NOTE | 2016-11-22 11:47 | Physician Discharge Referral ---
ExtendedCare Referral Info Transfer To: [facility] Provider in Charge after Transfer: PCP Institutional Level of Care: Intermediate - MR - Diagnosis (1) Syncope Priority: Primary Status: Acute (2) Dizziness Priority: Secondary Status: Acute (3) UTI (urinary tract infection) Priority: Secondary Status: Acute (4) Parkinsons Priority: Secondary Status: Chronic (5) Dehydration Priority: Secondary Status: Resolved (6) DVT prophylaxis Priority: Secondary Status: Acute (7) Acute kidney injury Priority: Secondary Status: Resolved Expected Duration of Placement: 30 days Prognosis: Fair Aware of Diagnosis: Patient, Family Aware of Prognosis: Patient, Family - Transfer Medications Prescriptions: Ciprofloxacin [Cipro] 500 mg PO BID #8 tablet clonazePAM [Klonopin] 0.5 mg PO BID #4 tablet Home Medications: Acetaminophen [Tylenol Arthritis] 650 mg PO Q8H PRN 11/17/16 [History] Aspirin Enteric Coated [Aspirin EC] 81 mg PO DAILY 11/17/16 [History] Atorvastatin [Lipitor] 40 mg PO HS 11/17/16 [History] Carbidopa/Levodopa 25/100 [Sinemet 25/100] 2 each PO TID 11/17/16 [History] Carbidopa/Levodopa ER 50/200 [Sinemet ER 50-200 Tab] 1 each PO HS 11/17/16 [ History] Celecoxib [Celebrex] 200 mg PO BID 11/17/16 [History] Citalopram Hydrobromide [Citalopram HBr] 10 mg PO DAILY 11/17/16 [History] Coenzyme [id number]-l-[id number]-Suk E [Co Q-10 with l-Carnitine Sftgl] 1 each PO DAILY 11/17/16 [History] Cranberry 400 mg PO DAILY 11/17/16 [History] Ergocalciferol (VITAMIN D2) [Vitamin D2] 50,000 unit PO CASEY 11/17/16 [History] Omeprazole [PriLOSEC] 20 mg PO DAILY 11/17/16 [History] Ciprofloxacin [Cipro] 500 mg PO BID #8 tablet 11/22/16 [Rx] clonazePAM [Klonopin] 0.5 mg PO BID #4 tablet 11/22/16 [Rx] Allergies/Adverse Reactions: Allergies diazepam [From Valium] Adverse Reaction (Verified 11/17/16 16:55) See Comments - Respiratory Orders Smoking Cessation: Smoking cessation has been advised. For more information, call the [place] Tobacco Quit Line at 6-005-UEHZ-NOW. - Lab Orders Lab Orders: CBC, U/A, CXR yearly - Ancillary Orders May use pressure relief devices daily prn, May go on ALY w/family/respon alliance party w /meds at nurse discretion PRN, May consult with Dentist, Machine Grainer, Pharmacy Graduate Intern PRN - Advance Directives Code Status: DNR-Arrest/Don't Intubate - Mobility Orders Chair, Ambulate - Rehabiliation Orders Rehab Potential: Fair Rehab Orders: ROM Exercises, Evaluation for Physical Therapy, Evaluation for Occupational Therapy - Treatments Skin tear care topically daily PRN per policy, May check for fecal impaction rectally daily PRN, Fleet enema rectally every other day PRN cleansing purposes - Diet Orders Regular CERTIFICATION: I certify that the transfer of the above named patient to an Extended Care Facility is necessary for the continuing treatment of the diagnosis listed. The above information is true and accurate reflection of patient's current condition. Confidential - Redisclosure prohibited without a patient's written consent.
[2016-11-22] MEDS: Acetaminophen 325 MG TABLET PO PRN (12:08)
== END 2016-11-22 12:34 | disposition home or self-care (01) | DRG 690 ==
LOC: 3BNU 09:58 → EMEROO 09:58 → 3BNU 15:12 → SUATTDRO 11-19 12:00
PROVIDERS: ADMIT Internal Medicine Sleep Medicine; ATTEND Internal Medicine